=== PATIENT | female | born 1960 | race African-American/Black ===

== ENCOUNTER 2024-06-29 12:33 | Inpatient (IN) | payer MEDICAID, OTHER ==
[~2024-06-29] VITALS: Ht 172.7 cm; Wt 76.3 kg
[~2024-06-29 12:33] MED LIST: CYCL-839 PO; HYDR-4798 PO; OMEP-448 PO; OXYC325T14 PO; QUET1TAB88 PO; TEMA30CA PO; TIZA-142 PO; WARF4TAB69 PO
[2024-06-29 17:51] LABS: Hemoglobin 9.1 g/dL (12.2-16.2)
[2024-06-29 17:53] LABS: Basophils # (auto) 0 10 ^3/uL (0-0.2); Eosinophils # (auto) 0.3 10 ^3/uL (0-0.8); Eosinophils % (auto) 5.7 % (0.0-7.0); Hematocrit 28.9 % (36.0-46.0); Lymphocytes # (auto) 1.2 10 ^3/uL (0.4-5.4); Lymphocytes % (auto) 25.2 % (10.0-50.0); Mean Corpuscular Hemoglobin 24.4 pg (28.0-32.0); Mean Corpuscular Hgb Conc. 31.4 g/dL (32.0-36.0); Mean Corpuscular Volume 77.9 fL (80.0-100.0); Monocytes # (auto) 0.4 10 ^3/uL (0-1.3); Monocytes % (auto) 7.5 % (0.0-12.0); Neutrophils # (auto) 2.9 10 ^3/uL (1.6-8.6); Neutrophils % (auto) 60.6 % (37.0-80.0); Nucleated Red Blood Cells % 0.3 %; Platelet Count (auto) 313 10^3/uL (140-450); Red Blood Cells 3.71 10^6/uL (4.0-5.20); Red Cell Distribution Width 19.5 % (11.8-14.3); White Blood Cell 4.7 10^3/uL (4.4-10.8)
[2024-06-29 18:07] LABS: Alanine Aminotransferase 12 U/L (7-40); Albumin 4.6 g/dL (3.2-4.8); Alkaline Phosphatase 99 U/L (46-116); Anion Gap 7 (5-15); Aspartate Aminotransferase < 8 U/L (13-40); BUN/Creatinine Ratio 18.2 (10.0-20.0); Blood Urea Nitrogen 25 mg/dL (9-23); Calcium 9.9 mg/dL (8.7-10.4); Carbon Dioxide 25 mmol/L (20-30); Chloride 108 mmol/L (98-107); Glucose 100 mg/dL (74-106); Potassium 4.4 mmol/L (3.5-5.1); Sodium 140 mmol/L (136-145)
[2024-06-29 18:08] LABS: Bilirubin, Total 0.3 mg/dL (0.2-1.0); Total Protein 7.1 g/dL (5.7-8.2)
[2024-06-29] MEDS ORDERED: MORPHINE SULFATE INJ 2 MG/ml SYRG IV PRN (23:00)
[2024-06-29] MEDS ORDERED: NITROGLYCERIN 0.4 MG SL TAB SL PRN (23:00)
[2024-06-29 23:39] LABS: INR 1.1 (0.9-1.15); Partial Thromboplastin Time 28.1 SEC (24.5-34.5); Prothrombin Time 11.6 sec (9.3-11.8)
[2024-06-29 23:55] LABS: Triglycerides 119 mg/dL (< 150)
[2024-06-29 23:56] LABS: LDL Cholesterol 125 mg/dL (< 100)
[2024-06-29 23:57] LABS: Cholesterol 201 mg/dL (< 200); HDL Cholesterol 56 mg/dL (40-59)
[2024-06-30] MEDS: ATORVASTATIN 20 MG TAB PO ONE (01:59)
[2024-06-30] MEDS: ERGOCALCIFEROL 50,000 UNIT(1.25MG) CAP PO SCH (02:01)
[2024-06-30] MEDS: ASPirin 81 mg TAB PO ONE (02:01)
[2024-06-30] MEDS: levETIRAcetam 1000 mg/100ml 100 ML IV ONE (02:01)
[2024-06-30] MEDS: LORazepam 2MG/ML-1ML VIAL IV ONE (02:02)
[2024-06-30] MEDS: CYANOCOBALAMIN (B-12) 1000 MCG/1 ML VIAL IM ONE (02:06)
[2024-06-30 07:28] LABS: Basophils # (auto) 0.1 10 ^3/uL (0-0.2); Eosinophils # (auto) 0.3 10 ^3/uL (0-0.8); Lymphocytes # (auto) 1.1 10 ^3/uL (0.4-5.4); Monocytes # (auto) 0.5 10 ^3/uL (0-1.3); White Blood Cell 5.2 10^3/uL (4.4-10.8)
[2024-06-30 07:31] LABS: Basophils % (auto) 1.1 % (0.0-2.0); Eosinophils % (auto) 5.9 % (0.0-7.0); Hematocrit 29.3 % (36.0-46.0); Lymphocytes % (auto) 21.6 % (10.0-50.0); Mean Corpuscular Hemoglobin 24.4 pg (28.0-32.0); Mean Corpuscular Hgb Conc. 30.7 g/dL (32.0-36.0); Mean Corpuscular Volume 79.5 fL (80.0-100.0); Monocytes % (auto) 9.3 % (0.0-12.0); Neutrophils # (auto) 3.2 10 ^3/uL (1.6-8.6); Neutrophils % (auto) 62.1 % (37.0-80.0); Nucleated Red Blood Cells % 0.1 %; Platelet Count (auto) 311 10^3/uL (140-450); Red Blood Cells 3.69 10^6/uL (4.0-5.20); Red Cell Distribution Width 19.9 % (11.8-14.3)
[2024-06-30 07:32] LABS: Anion Gap 9 (5-15); Carbon Dioxide 23 mmol/L (20-30); Chloride 109 mmol/L (98-107); Potassium 4.1 mmol/L (3.5-5.1); Sodium 141 mmol/L (136-145)
[2024-06-30 07:33] LABS: Calcium 10.3 mg/dL (8.7-10.4)
[2024-06-30 07:38] LABS: BUN/Creatinine Ratio 16.2 (10.0-20.0); Blood Urea Nitrogen 19 mg/dL (9-23); Glucose 98 mg/dL (74-106)
[2024-06-30 07:57] VITALS: PULSE 86; RESP 17; O2SAT 100
[2024-06-30 08:35] LABS: % Iron Saturation 6.7 % (15-50)
[2024-06-30 09:56] LABS: Amphetamine Screen, Urine Neg (NEGATIVE); Barbiturate Scree,Urine Neg (NEGATIVE); Benzodiazephine Screen, Urine Pos (NEGATIVE); Cocaine Screen, Urine Neg (NEGATIVE)
[2024-06-30 09:57] LABS: Cannabinoid Screen, Urine Neg (NEGATIVE); Opiate Scree,Urine Neg (NEGATIVE); Phencyclidine Screen, Urine Neg (NEGATIVE); Urine Bacteria FEW /hpf (None Seen); Urine Blood 1+ /uL (Negative); Urine Clarity Clear (Clear); Urine Color Colorless (Yellow); Urine Protein, UAD TRACE (Negative); Urine Urobilinogen Normal (Negative); Urine WBC <1 /hpf (0 - 5); Urine pH 5.5 (5.0-9.0)
[2024-06-30] MEDS: ASPirin 81 mg TAB PO SCH (09:57)
[2024-06-30] MEDS: DULoxetine HCL 30 MG CAP PO SCH (09:58)
[2024-06-30] MEDS ORDERED: OXYCODONE W/ ACETAMINOPHEN 5/325MG TABLET ONE (10:48)
[2024-06-30] MEDS: OXYCODONE W/ ACETAMINOPHEN 5/325MG TABLET PO PRN (10:51)
[2024-06-30] MEDS ORDERED: ENOXAPARIN SOD 40 MG/0.4 ML SYRINGE SC SCH (12:15)
[2024-06-30 15:24] VITALS: PULSE 82; RESP 17; O2SAT 95
[2024-06-30 16:56] VITALS: BP 109/55; PULSE 87; RESP 16; TEMP 98.4; O2SAT 100
[2024-06-30] MEDS: WARFARIN SODIUM 5 MG TAB PO ONE (17:00)
[2024-06-30] MEDS ORDERED: CYCLOBENZAPRINE HCL 10 MG TAB PO PRN (17:45)
[2024-06-30] MEDS: FERROUS SULFATE 325mg EC TAB PO SCH (18:05)
[2024-06-30] MEDS: NICOTINE 14 MG/24HR TOPICAL PATCH TD ONE (18:05)
[2024-06-30] MEDS: PANTOPRAZOLE 40 MG TAB PO ONE (18:06)
[2024-06-30] MEDS: POLYETHYLENE GLYCOL 17 GM PWDR PO SCH (18:07)
[2024-06-30 20:00] VITALS: PULSE 85; PULSE 86; RESP 18; O2SAT 98
[2024-06-30 21:00] VITALS: BP 134/87; PULSE 86; RESP 18; TEMP 98; O2SAT 98
[2024-06-30] MEDS: ATORVASTATIN 20 MG TAB PO SCH (22:28)
[2024-06-30] MEDS: QUEtiapine FUMARATE 100 MG TAB PO SCH (22:28)
[2024-07-01] VITALS (7 sets, daily range): BP systolic 117–143; BP diastolic 74–96; PULSE 83–96; RESP 16–19; TEMP 97–98.8; O2SAT 95–98
[2024-07-01] MEDS: PANTOPRAZOLE 40 MG TAB PO SCH (05:40)
[2024-07-01 06:59] LABS: Basophils # (auto) 0.1 10 ^3/uL (0-0.2); Eosinophils # (auto) 0.3 10 ^3/uL (0-0.8); Hemoglobin 8.4 g/dL (12.2-16.2); White Blood Cell 4.4 10^3/uL (4.4-10.8)
[2024-07-01 07:02] LABS: Basophils % (auto) 1.3 % (0.0-2.0); Eosinophils % (auto) 6.7 % (0.0-7.0); Hematocrit 26.9 % (36.0-46.0); Lymphocytes # (auto) 1.2 10 ^3/uL (0.4-5.4); Lymphocytes % (auto) 26.6 % (10.0-50.0); Mean Corpuscular Hemoglobin 24.6 pg (28.0-32.0); Mean Corpuscular Hgb Conc. 31.4 g/dL (32.0-36.0); Mean Corpuscular Volume 78.6 fL (80.0-100.0); Monocytes # (auto) 0.4 10 ^3/uL (0-1.3); Monocytes % (auto) 9.9 % (0.0-12.0); Neutrophils # (auto) 2.4 10 ^3/uL (1.6-8.6); Neutrophils % (auto) 55.5 % (37.0-80.0); Nucleated Red Blood Cells % 0.3 %; Platelet Count (auto) 267 10^3/uL (140-450); Red Blood Cells 3.42 10^6/uL (4.0-5.20)
[2024-07-01 07:05] LABS: Red Cell Distribution Width 20.3 % (11.8-14.3)
[2024-07-01 07:08] LABS: INR 1.26 (0.9-1.15); Partial Thromboplastin Time 29.6 SEC (24.5-34.5); Prothrombin Time 13.1 sec (9.3-11.8)
[2024-07-01 07:15] LABS: Anion Gap 7 (5-15); Calcium 9.5 mg/dL (8.7-10.4); Carbon Dioxide 25 mmol/L (20-30); Chloride 108 mmol/L (98-107); Sodium 140 mmol/L (136-145)
[2024-07-01 07:22] LABS: Blood Urea Nitrogen 15 mg/dL (9-23); Glucose 97 mg/dL (74-106)
[2024-07-01] MEDS: NICOTINE 14 MG/24HR TOPICAL PATCH TD SCH (09:53)
[2024-07-01] MEDS ORDERED: ENOXAPARIN SOD 60 MG/0.6 ML SYRINGE SC SCH (11:00)
[2024-07-01] MEDS: ENOXAPARIN SOD 60 MG/0.6 ML SYRINGE SC SCH (11:14)
[2024-07-01] MEDS ORDERED: PANTOPRAZOLE 40 MG/10 ML VIAL INJ IV ONE (11:30)
[2024-07-01] MEDS ORDERED: LIDO1.8P EX (14:00)
[2024-07-01] MEDS ORDERED: DULO60CA41 PO (15:10)
[2024-07-01] MEDS ORDERED: METH-1182 PO (15:10)
[2024-07-01] MEDS ORDERED: FERR1TAB8 PO (15:10)
[2024-07-01] MEDS: WARFARIN SODIUM 5 MG TAB PO ONE (17:13)
[2024-07-01] MEDS: ONDANSETRON HCL 4 MG/2 ML VIAL IV PRN (18:49)
[2024-07-02] VITALS (8 sets, daily range): BP systolic 107–143; BP diastolic 76–90; PULSE 87–98; RESP 17–20; TEMP 98.3–99.6; O2SAT 94–100
[2024-07-02 08:07] LABS: INR 1.29 (0.9-1.15); Partial Thromboplastin Time 34.2 SEC (24.5-34.5); Prothrombin Time 13.4 sec (9.3-11.8)
[2024-07-02] MEDS: PANTOPRAZOLE 40 MG/10 ML VIAL INJ IV SCH (10:58)
[2024-07-02 11:54] LABS: Chloride 107 mmol/L (98-107); Potassium 4.3 mmol/L (3.5-5.1); Sodium 140 mmol/L (136-145)
[2024-07-02 11:55] LABS: Anion Gap 6 (5-15); Calcium 9.9 mg/dL (8.7-10.4); Carbon Dioxide 27 mmol/L (20-31)
[2024-07-02 12:00] LABS: BUN/Creatinine Ratio 10.8 (10.0-20.0); Blood Urea Nitrogen 14 mg/dL (9-23); Glucose 87 mg/dL (74-106)
[2024-07-02] MEDS: FERROUS SULFATE 325mg EC TAB PO SCH (17:12)
[2024-07-02] MEDS: WARFARIN SODIUM 5 MG TAB PO ONE (17:23)
[2024-07-02] MEDS: LORazepam 2MG/ML-1ML VIAL IV PRN (23:36)
[2024-07-03] VITALS (7 sets, daily range): BP systolic 120–128; BP diastolic 64–92; PULSE 86–103; RESP 17–20; TEMP 98.2–99.4; O2SAT 93–100
[2024-07-03 08:12] LABS: Basophils # (auto) 0.1 10 ^3/uL (0-0.2); Basophils % (auto) 1.3 % (0.0-2.0); Eosinophils # (auto) 0.1 10 ^3/uL (0-0.8); Eosinophils % (auto) 2.5 % (0.0-7.0); Hematocrit 30.3 % (36.0-46.0); Hemoglobin 9.4 g/dL (12.2-16.2); Lymphocytes # (auto) 0.6 10 ^3/uL (0.4-5.4); Lymphocytes % (auto) 15.1 % (10.0-50.0); Mean Corpuscular Hemoglobin 24.4 pg (28.0-32.0); Mean Corpuscular Hgb Conc. 30.8 g/dL (32.0-36.0); Mean Corpuscular Volume 79.1 fL (80.0-100.0); Monocytes # (auto) 0.6 10 ^3/uL (0-1.3); Neutrophils # (auto) 2.9 10 ^3/uL (1.6-8.6); Neutrophils % (auto) 68.1 % (37.0-80.0); Nucleated Red Blood Cells % 0.5 %; Platelet Count (auto) 241 10^3/uL (140-450); Red Blood Cells 3.83 10^6/uL (4.0-5.20); White Blood Cell 4.3 10^3/uL (4.4-10.8)
[2024-07-03 08:19] LABS: Chloride 105 mmol/L (98-107); Potassium 4.2 mmol/L (3.5-5.1); Sodium 137 mmol/L (136-145)
[2024-07-03 08:20] LABS: Anion Gap 7 (5-15); Calcium 9.8 mg/dL (8.7-10.4); Carbon Dioxide 25 mmol/L (20-31)
[2024-07-03 08:26] LABS: Blood Urea Nitrogen 9 mg/dL (9-23); Glucose 101 mg/dL (74-106)
[2024-07-03 08:33] LABS: Partial Thromboplastin Time 42.9 SEC (24.5-34.5); Prothrombin Time 29.3 sec (9.3-11.8)
[2024-07-04 01:00] VITALS: BP 111/70; PULSE 97; RESP 20; TEMP 99.2; O2SAT 100
== END 2024-07-04 01:40 | disposition short-term general hospital (02) | DRG 206 ==
LOC: EDBD 12:33 → ER 12:33 → TELE 22:57 → TELE-WESTW 06-30 15:20
PROVIDERS: ADMIT Internal Medicine; ATTEND Internal Medicine
DX: T82.857A Stenosis of other cardiac prosthetic devices, implants and grafts, initial encounter (principal); N17.0 Acute kidney failure with tubular necrosis; D68.69 Other thrombophilia; I27.20 Pulmonary hypertension, unspecified; I50.9 Heart failure, unspecified; I05.0 Rheumatic mitral stenosis; F17.210 Nicotine dependence, cigarettes, uncomplicated; D50.9 Iron deficiency anemia, unspecified; E53.8 Deficiency of other specified B group vitamins; E55.9 Vitamin D deficiency, unspecified; F43.10 Post-traumatic stress disorder, unspecified; G89.29 Other chronic pain; I48.91 Unspecified atrial fibrillation; F41.0 Panic disorder [episodic paroxysmal anxiety]; H54.62 Unqualified visual loss, left eye, normal vision right eye; R56.9 Unspecified convulsions; Z90.5 Acquired absence of kidney; Z79.01 Long term (current) use of anticoagulants; Z79.891 Long term (current) use of opiate analgesic; Z79.899 Other long term (current) drug therapy; Z82.49 Family history of ischemic heart disease and other diseases of the circulatory system; Z95.2 Presence of prosthetic heart valve; Y84.8 Other medical procedures as the cause of abnormal reaction of the patient, or of later complication, without mention of misadventure at the time of the procedure; Y92.89 Other specified places as the place of occurrence of the external cause
CPT/HCPCS: 36415; 70450; 71045; 80048; 80053; 80061; 80307; 81001; 82306; 82607; 83036; 83540; 83550; 83880; 84443; 84484; 85025; 85610; 85730; 93005; 93306; 93886; G0378; J2405; J2470